=== PATIENT | female | born 1975 | race Caucasian/White ===

== ENCOUNTER → 2021-03-11 11:13 | Outpatient (CLI) | payer BC, SELFPAY ==
[2021-03-11 13:52] LABS: COVID19 -Nasal RAPID Negative (Negative)
== END ==
PROVIDERS: PCP Naturopath; Visit Provider Physician Assistant
DX: Z20.822 Contact with and (suspected) exposure to COVID-19 (principal)
CPT/HCPCS: 87635

== ENCOUNTER 2021-03-13 13:36 | Day surgery (SDC) | payer BC, SELFPAY ==
--- NOTE | 2021-03-13 12:25 | PM.HP.1 ---
History of Present Illness History of Present Illness Date Patient Seen: 03/13/21 Chief complaint: SCREENING COLONOSCOPY Narrative: 45 year old female comes in today for consideration of a screening colonoscopy. There have been no lower GI symptoms suggesting disease such as change in bowel habits, bleeding, abdominal pain or anemia. She does have a family history of colon polyps. Overall health issues have been stable, including no major cardiac events for at least 6 weeks. PCP: Dr. Crum Past Medical History: Thyroid nodules - managed by Dr. 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 [employer] Education Masters 2 Children - [facility] 2008 and [place] 2015 Alcohol drinks/day: 0-1 wine Caffeine use/day: 2 coffee Type of Exercise: intermittent Guns in home: no Dental Care w/in 6 mos.: no Sun Exposure: occasionally Seat Belt Use: yes Smoking Status: former smoker Year quit smokin Drug Use: never HIV High Risk Behavior: no Patient History Medical History (Updated 03/13/21 @ 12:54 by Kaitlynn Braxton RN) Seasonal allergies Thyroid nodule Surgical History History of third molar tooth extraction Status post dilation and curettage (12/31/13) Status post LASIK surgery Meds Home Medications and Allergies Home Medications Medication Instructions Recorded Confirmed Type loratadine 10 mg tablet (Allergy 10 mg PO DAILY 03/13/21 03/13/21 History Relief (loratadine)) Allergies Allergy/AdvReac Type Severity Reaction Status Date / Time No Known Drug Allergies Allergy Verified 03/13/21 12:51 Review of Systems Review of Systems Narrative: All remaining ROS were reviewed and negative except as addressed. Exam Narrative Exam Narrative: GENERAL: Alert and oriented, appearing stated age and in no acute distress. HEENT: Head normocephalic/atraumatic. Extraocular movements intact. LUNGS: Clear to ausculation bilaterally, no wheezes, rhonchi or rales. CV: Normal S1 and S2 with regular rate and rhythm, no audible murmurs, rubs or gallops. ABDOMEN: Soft, non-tender, non-distended, no organomegaly. Positive bowel sounds. EXTREMITIES: No clubbing, cyanosis, or edema. NEURO: Cranial nerves II through XII grossly intact, no focal deficits. PSYCH: Alert and oriented x 3. SKIN: No concerning lesions. Assessment & Plan Assessment & Plan narrative: 1. Family history of colon polyps 2. Screening for colon cancer Plan for colonoscopy. The nature and character of the procedure as well as anticipated results were discussed. The possibility of not completing the procedure was also discussed. Possible complications including aspiration pneumonia, bleeding, perforation and reaction to medications either for sedation or preparation and missed lesions were discussed. Questions were answered and proceeding to the colonoscopy was elected. Informed consent signed.
--- NOTE | 2021-03-13 12:29 | PM.OP.COLON ---
Operative Date/Time/Diagnoses Date of procedure: 03/13/21 Procedure Notes SCOAP/Timeout: 2:48 p.m. Procedure in detail: ENDOSCOPIST: Eunice Crum MD Sedation RN: Emani Thomas RN Sedation start time: 2:57 p.m. Sedation end time: 3:24 p.m. PROCEDURE: Colonoscopy INDICATIONS: 1. Family history of colon polyps 2. Screening for colon cancer MEDICATION: Levsin 0.125 mg sublingual, incremental doses of Versed and fentanyl until appropriate level sedation achieved. ASA CLASS: 2 CECAL WITHDRAWAL TIME: 6 minutes COMPLICATIONS: None. EXTENT OF PROCEDURE: Cecum. QUALITY OF PREP: Good with portions of liquid stool. PROCEDURE: Prior to insertion of the colonoscope, a digital rectal examination was accomplished with circumferential palpation of the distal rectal mucosa without significant findings being noted. The high-definition colonoscope was passed into the rectum in the usual fashion and advanced over to the cecum without difficulty. The ileocecal valve, appendiceal stoma, and medial wall all could be inspected and no abnormalities were seen. ASCENDING COLON: As the colonoscope was withdrawn, care was taken to expose and inspect the haustral folds and no abnormalities were seen. HEPATIC FLEXURE: Normal, no polyps, diverticula or other abnormalities. TRANSVERSE COLON: Normal, no polyps, diverticula or other abnormalities. DESCENDING COLON: Normal, no polyps, diverticula or other abnormalities. SIGMOID COLON: Normal, no polyps, diverticula or other abnormalities. RECTUM: Normal. J maneuver was produced. There was no significant perianal disease. The J maneuver was broken. The remainder of the rectum was inspected and there was no external hemorrhoid disease. The scope was withdrawn. IMPRESSION: 1. Normal colonoscopy PLAN: 1. Repeat colonoscopy in 5 years secondary to family history. The possibility of a missed lesion including a malignancy has been discussed with the patient previously. Potential alarm symptoms have been discussed and should be reported immediately.
[2021-03-13 13:55] VITALS: BP 114/74; PULSE 70; RESP 18; TEMP 36.4; O2SAT 100; BMI 27.3
[2021-03-13] MEDS: HYOSCYAMINE 0.125 MG TABLET PO (14:09)
[2021-03-13] MEDS: LACTATED RINGERS 1,000 ML 200 ML IV (14:15)
[2021-03-13] MEDS: fentaNYL 250 MCG/5 ML INJ IV (15:25)
[2021-03-13] MEDS: MIDAZOLAM 5 MG/5 ML VIAL IV (15:25)
[2021-03-13 15:30] VITALS: BP 95/58; PULSE 52; RESP 20; O2SAT 98
[2021-03-13 15:35] VITALS: BP 96/59; PULSE 56; RESP 20; O2SAT 100
[2021-03-13 15:40] VITALS: BP 102/62; PULSE 67; RESP 18; O2SAT 100
[2021-03-13 15:45] VITALS: BP 103/62; PULSE 63; RESP 20; TEMP 36.4; O2SAT 100
[2021-03-13 15:54] VITALS: BP 107/61; PULSE 63; RESP 20; TEMP 36.7; O2SAT 100
--- NOTE | 2021-03-13 17:20 | SUR.PHASEII ---
Pt ready to go, belly soft, no nausea, dressed, left unit in stable condition.
== END 2021-03-13 16:15 | disposition home or self-care (01) ==
PROVIDERS: PCP Naturopath; Referring Provider Student in an Organized Health Care Education/Training Program; Visit Provider Student in an Organized Health Care Education/Training Program
PROC: 0DJD8ZZ Inspection of Lower Intestinal Tract, Via Natural or Artificial Opening Endoscopic (ICD-10-PCS; CPT 45378; principal; 2021-03-13 14:30)
DX: Z12.11 Encounter for screening for malignant neoplasm of colon (principal); Z83.71 Family history of colonic polyps
CPT/HCPCS: 45378; J2250; J3010

== ENCOUNTER → 2021-07-08 11:05 | Outpatient (CLI) | payer BC, SELFPAY ==
--- NOTE | 2021-07-08 | DI.RAD.S_ITS ---
PROCEDURE: XR CHEST 2V INDICATIONS: Palpitations TECHNIQUE: 2 views of the chest were acquired. COMPARISON: None. FINDINGS: Surgical changes and devices: None. Lungs and pleura: Lungs are clear. No pleural effusions or pneumothorax. Mediastinum: Mediastinal contours are normal. Heart size is normal. Bones and chest wall: No suspicious bony abnormalities. Soft tissues appear unremarkable. IMPRESSION: No acute cardiopulmonary findings. Dictated by: Jacquelyn Fink M.D. on 07/08/2021 at 12:26 Approved by: Jacquelyn Fink M.D. on 07/08/2021 at 12:27
== END ==
PROVIDERS: PCP Student in an Organized Health Care Education/Training Program; Referring Provider Student in an Organized Health Care Education/Training Program; Visit Provider Student in an Organized Health Care Education/Training Program
DX: R00.2 Palpitations (principal)
CPT/HCPCS: 71046

== ENCOUNTER → 2021-08-26 13:28 | Outpatient (CLI) | payer BC, SELFPAY ==
[2021-08-26 15:16] LABS: COVID19 -Nasal RAPID Negative (Negative)
== END ==
PROVIDERS: PCP Student in an Organized Health Care Education/Training Program; Visit Provider Family Medicine Sleep Medicine
DX: Z20.822 Contact with and (suspected) exposure to COVID-19 (principal); Z01.812 Encounter for preprocedural laboratory examination
CPT/HCPCS: 87635; C9803

== ENCOUNTER → 2021-08-28 15:17 | Outpatient (CLI) | payer BC, SELFPAY ==
--- NOTE | 2021-08-31 19:22 | DI.NM.S_ITS ---
DATE OF SERVICE: 08/28/2021 PROCEDURE PERFORMED: Exercise treadmill stress test without imaging. ORDERING PROVIDER: Eunice Crum MD. INDICATIONS: The patient is a 45-year-old female with palpitations. FINDINGS: 1. The patient was able to exercise for 12 minutes, 16 seconds on a standard Familia protocol suggesting good exercise capacity with an GABRIEL of -10%, achieving 12.8 METs. 2. She had a normal heart rate and blood pressure response to exercise, achieving a maximum heart rate of 168 BPM (97% of her predicted maximum). 3. She had no chest discomfort or other anginal symptoms. 4. Her resting ECG shows sinus rhythm with normal ST segments. There were no significant ST-segment shifts or arrhythmias with the exception of rare isolated PVCs with stress. IMPRESSION: 1. Normal exercise treadmill stress test for ischemia. 2. Good exercise capacity without angina. She had rare isolated PVCs but no other arrhythmias. Lucy Sanders - FRANKLIN/shelley/kiara doc#: [id number]/job#: [id number] dd: 08/31/2021 16:43:00 dt: 08/31/2021 18:18:00 DICTATING /COPIES TO: Darell Ayala MD; Eunice Crum MD COPIES MNE: MEGHNA;
== END ==
PROVIDERS: PCP Student in an Organized Health Care Education/Training Program; Referring Provider Student in an Organized Health Care Education/Training Program; Visit Provider Student in an Organized Health Care Education/Training Program
DX: R00.2 Palpitations (principal)
CPT/HCPCS: 93017

== ENCOUNTER → 2024-03-02 15:31 | Outpatient (CLI) | payer BC, SELFPAY ==
--- NOTE | 2024-03-02 15:32 | DI.US.S_ITS ---
PROCEDURE: US THYROID INDICATIONS: NONTOXIC MULTINODULER GOITER TECHNIQUE: Real-time scanning was performed of the thyroid gland, with image documentation. COMPARISON: [facility] Ultrasound, US, US THYROID, 02/13/2018, 15:06. FINDINGS: Thyroid: Right lobe measures 5.4 x 1.6 x 1.7 cm. Left lobe measures 5.7 x 2.1 x 1.6 cm. Isthmus is 2.9 cm thick. Echotexture is heterogeneous. Nodule number: 1 Location: Midpole right thyroid lobe Size: 1.1 x 0.7 x 0.4 cm. New since previous study. Composition: Predominantly solid Echogenicity: Isoechoic Shape: Wider than tall Margins: Smooth Echogenic foci: None Total points: 3 ACR TI-RADS category: Mildly suspicious. Nodule number: 2 Location: Midpole left thyroid lobe lateral aspect Size: 2.2 x 1.2 x 1.5 cm, previously 2.1 x 1.5 x 1.9 cm. Composition: Predominantly solid Echogenicity: Hypoechoic Shape: Wider than tall Margins: Smooth Echogenic foci: Macro calcifications Total points: 4 ACR TI-RADS category: Moderately suspicious Nodule number: 3 Location: Medial midpole left thyroid lobe Size: 1 1.9 x 1.5 x 1.0 cm. Previously 1.1 x 0.6 x 0.7 cm. Composition: Predominantly solid Echogenicity: Hypoechoic Shape: Wider than tall Margins: Smooth Echogenic foci: None Total points: 4 ACR TI-RADS category: Moderately suspicious IMPRESSION: 1. 2 moderately suspicious nodules in midpole left thyroid lobe. Interval increase in size of previously noted medial midpole left thyroid larger ule (nodule 3), suggest fine-needle aspiration of this nodule if not previously done. 2. Mildly suspicious right thyroid lobe nodule new since previous study. Ultrasound follow-up is recommended. ACR TI-RADS definitions and recommendations: TI-RADS 1 (benign): 0 points. FNA not needed. TI-RADS 2 (not suspicious): 2 points. FNA not needed. TI-RADS 3: 3 points. * FNA if 2.5 cm or larger, follow up if 1.5 cm or larger (at 1, 3, and 5 years). TI-RADS 4: 4-6 points. * FNA if 1.5 cm or larger, follow up if 1 cm or larger (at 1, 2, 3, and 5 years). TI-RADS 5: 7 points or more. * FNA if 1 cm or larger, follow up if 0.5 cm or larger (every year for 5 years). Dictated by: Benjamin Simon M.D. on 03/07/2024 at 14:09 Approved by: Benjamin Simon M.D. on 03/07/2024 at 14:14
== END ==
PROVIDERS: PCP Registered Nurse; Referring Provider Internal Medicine; Visit Provider Internal Medicine
DX: E04.2 Nontoxic multinodular goiter (principal)
CPT/HCPCS: 76536

== ENCOUNTER → 2025-01-16 | Outpatient (CLI) | payer BC, SELFPAY ==
--- NOTE | 2025-01-16 15:02 | DI.MRI.S_ITS ---
MR breast BI wo/w con: 01/16/2025. BI-RADS: 1 CLINICAL: 49-year old female for bilateral diagnostic breast MRI. No personal or first-degree family history of breast cancer. Current reported family history of breast cancer: paternal grandmother. PRIOR EXAMS 04/17/2024, 09/07/2022, 03/31/2021, 11/27/2019, 02/17/2015. MRI TECHNIQUE Bilateral breast MRI was performed on a 1.5 Lola magnet using a dedicated breast coil with mild compression. Axial T1 and T2 STIR sequences were obtained. Dynamic contrast enhanced VIBRANT fat-suppressed sequences were obtained. Delayed sagittal high resolution or sagittal reconstructed isotropic sequence was also obtained. Subtraction images and maximum intensity projection images were obtained. The study was evaluated using [employer] software. Gadavist was injected intravenously: mL. IV Contrast: 20 ml ProHance. FIBROGLANDULAR TISSUE Bilateral: C. Heterogeneous fibroglandular tissue. BACKGROUND PARENCHYMAL ENHANCEMENT Bilateral: Mild symmetrical background parenchymal enhancement. BREAST FINDINGS Bilateral: There is no suspicious mass or non-mass enhancement. No suspicious architectural distortion. No skin or nipple abnormalities. No internal mammary chain or axillary adenopathy. CHEST FINDINGS Visualized portions of the chest appear unremarkable. ABDOMEN FINDINGS Visualized portions of the upper abdomen appear unremarkable. IMPRESSION: * No evidence of malignancy. RECOMMENDATIONS Bilateral * Annual screening mammography. OVERALL ASSESSMENT CATEGORY BI-RADS-1: Negative. ELECTRONICALLY SIGNED: Nghia Villalpando M.D. on 01/18/2025 at 11:18:46 AM PT Interpreting Station ID: [id number]
== END ==
PROVIDERS: PCP Registered Nurse; Referring Provider Registered Nurse; Visit Provider Registered Nurse
DX: Z91.89 Other specified personal risk factors, not elsewhere classified (principal); R92.333 Mammographic heterogeneous density, bilateral breasts; Z80.3 Family history of malignant neoplasm of breast
CPT/HCPCS: 77049; A9579